=== PATIENT | female | born 1965 | race African-American/Black ===

== ENCOUNTER → 2025-01-30 | Outpatient (CLI) | payer BC ==
[~2025-01-30] VITALS: Ht 167.6 cm; Wt 86.2 kg
[~2025-01-30] MED LIST: IOHEXOL-300 50 ML BOTTLE IV ONE; LIDOCAINE HCL 1% 10 MG/ML 10ML VIAL ONE; METHYLPREDNISOLONE ACETATE 40MG/ML VIAL IM SCH; ROPIVACAINE HCL 1% 20 ML VIAL EPI SCH; ROPIVACAINE HCL 10 MG/ML INFIL SCH
== END | disposition home or self-care (01) ==
LOC: RAD 08:22
DX: M25.512 Pain in left shoulder (principal); M75.02 Adhesive capsulitis of left shoulder; Z79.899 Other long term (current) drug therapy; Z98.890 Other specified postprocedural states
CPT/HCPCS: 20610; 77002; Q9967; J2003; J1010; J2795; Z7610; 36598